=== PATIENT | male | born 1960 | race Caucasian/White ===

== ENCOUNTER 2024-06-18 02:01 | Outpatient (RCR) | payer MEDICARE, SELFPAY | END 2024-09-09 23:59 | disposition home or self-care (01) | LOC: LAB 02:01 | PROVIDERS: Visit Provider Family Medicine | DX: N17.9 Acute kidney failure, unspecified (principal); N18.30 Chronic kidney disease, stage 3 unspecified; E11.51 Type 2 diabetes mellitus with diabetic peripheral angiopathy without gangrene | CPT/HCPCS: 80053 ==